=== PATIENT | female | born 1950 | race African-American/Black ===

== ENCOUNTER → 2019-07-11 | Outpatient (CLI) | payer OTHER, MEDICAID | LOC: M.LAB 08:44 | PROVIDERS: ATTEND Internal Medicine Gastroenterology | DX: Z01.812 Encounter for preprocedural laboratory examination (principal); Z80.0 Family history of malignant neoplasm of digestive organs ==

== ENCOUNTER → 2019-11-11 | Outpatient (CLI) | payer OTHER, MEDICAID | LOC: M.RAD 11-10 08:57 | PROVIDERS: ATTEND Family Medicine | DX: E65 Localized adiposity (principal); N63.21 Unspecified lump in the left breast, upper outer quadrant; N63.11 Unspecified lump in the right breast, upper outer quadrant ==

== ENCOUNTER → 2019-11-23 | Outpatient (CLI) | payer OTHER, MEDICAID ==
[2019-11-23 08:20] LABS: POTASSIUM 3.4 mmol/L (3.5-5.1)
== END ==
LOC: M.LAB 05:44
PROVIDERS: ATTEND Anesthesiology
DX: E87.6 Hypokalemia (principal); E11.9 Type 2 diabetes mellitus without complications

== ENCOUNTER → 2020-01-13 | Outpatient (CLI) | payer OTHER, MEDICAID | LOC: M.CT 11-22 13:00 | PROVIDERS: ATTEND Family Medicine | DX: R91.8 Other nonspecific abnormal finding of lung field (principal); I25.10 Atherosclerotic heart disease of native coronary artery without angina pectoris; R59.9 Enlarged lymph nodes, unspecified ==

== ENCOUNTER → 2020-02-08 | Outpatient (CLI) | payer OTHER, MEDICAID ==
[~2020-02-08] VITALS: Ht 160 cm; Wt 88.9 kg
[2020-02-08] VITALS (10 sets, daily range): BP systolic 150–177; BP diastolic 49–70
[~2020-02-08] MED LIST: ASA81BEC PO; BELSOMRA20 MG PO; COREG25 M1 PO; DESYREL150 MG PO; ENDOCET 7.5-321 EACH PO; FLUTICASONE-SA1 EAC4 INH; HYDROCHLOROTHIA25 M1 PO; JANUVIA100 MG PO; LEVO-T75 MCG PO; LIPITOR 40 MG T40 M1 PO; METRONIDAZOLE500 M4 PO; MICARDIS 80 MG80 MG PO; NEXIUM 40 MG CA40 M1 PO; PROAIR HFA8.5 GM INH; SPIRIVA RESPIMAT4 G1 INH; TOPICORT 0.25%15 GM TOP; ZANAFLEX4 MG PO
[2020-02-08 09:45] LABS: HEMATOCRIT 33.2 % (37.0-47.0); HEMOGLOBIN 11.3 gm/dL (12.0-15.0); MCH 29.3 pg (26.0-34.0); MCHC 34.1 g/dL (28.0-37.0); MPV 8.9 fl. (7.2-11.1); RBC 3.87 mil/uL (4.20-5.00); RDW-CV 13.3 % (10.5-14.5); WBC 6.3 thou/uL (4.0-11.0)
[2020-02-08 09:58] LABS: ANION GAP 10 mmol/L (7-16); BUN 11 mg/dL (7-18); CALCIUM 9.1 mg/dL (8.5-10.1); CHLORIDE 103 mmol/L (98-107); CO2 28 mmol/L (21-32); CREATININE 1.1 mg/dL (0.6-1.3); GLUCOSE 122 mg/dL (70-99); POTASSIUM 3.4 mmol/L (3.5-5.1); SODIUM 141 mmol/L (136-145)
[2020-02-08 10:03] LABS: ALBUMIN 3.8 g/dL (3.4-5.0); ALKALINE PHOSPHATASE 77 U/L (46-116); CHOLESTEROL 179 mg/dL (<200); HDL CHOLESTEROL 79 mg/dL (>40); LDL CHOLESTEROL 74 mg/dL (<100); SGOT 22 U/L (15-37); SGPT 36 U/L (30-65); TC:HDL 2.3 Ratio (Not establshd); TOTAL BILIRUBIN 0.4 mg/dL (<0.1-1.0); TOTAL PROTEIN 7.6 g/dL (6.4-8.2); TRIGLYCERIDE 133 mg/dL (<150); VLDL 27 mg/dL (<40)
[2020-02-08 10:05] LABS: SERUM ASSESSMENT Clear
[2020-02-08 10:13] LABS: APTT 28.6 Seconds (25.0-31.3); PROTIME 10.9 Seconds (9.20-11.50)
--- NOTE | 2020-02-08 14:47 | CARD ---
[address] [address] CARDIAC CATH REPORT Name: SARAH SANTILLAN Room: [facility]#: [id number] Admission: 02/08/20 Attend Phys: Ruy Woodall MD, Discharge: Date of : 54 Report #: [id number] THIS REPORT FOR: cc: Jeanine Thibodeaux Linda J. DO ~ Ruy Woodall MD [facility] ADDENDUM APPROVED REPORT Study performed: 02/08/2020 13:12:36 Patient Details Patient Status: Out-Patient Room #: The patient is a 69 year-old female Event Personnel Ruy Woodall Classifying Machine Operator, Iman Funk RN Math Teacher, Brittnee Lofton RTR Monitor, Aj Steinberg RTR Scrub Procedures Performed Art Access - R femoral artery, Left Heart Cath w/or w/o Coronaries LHC, Hemostasis w/ Mynx Indication Chest pain Risk Factors Obesity, Hypercholesterolemia, Hypertension Admission/Lab Medications/Medications given during procedure Hydralazine (Apresoline) IV 10 mg Procedure Narrative The patient was brought electively to the Cardiac Catheterization Laboratory and was prepped and draped in a sterile manner. The right femoral was infiltrated with 2% Lidocaine subcutaneous anesthesia. A [place] 6 FR sheath was inserted into the right femoral artery. Coronary angiography was performed using coronary diagnostic catheters. The right coronary system was accessed and visualized with a 6F JR4 catheter. The left coronary system was accessed and visualized with a 6F JL4 catheter. The left ventricle was accessed and visualized with a 6F Straight Pigtail catheter. Left ventricular/Aortic Valve gradient assessed [place] [address] CARDIAC CATH REPORT Name: SARAH SANTILLAN Room: [facility]#: [id number] Admission: 02/08/20 Attend Phys: Ruy Woodall MD, Discharge: Date of : 54 Report #: [id number] Left ventriculogram was performed in SPICER projection. Pre-demployment femoral angiogram was performed . Closure device was deployed with a 6 Fr Mynx. The patient tolerated the procedure well and there were no complications associated with the procedure. There was no hematoma. Intraoperative Conscious Sedation Sedation start time: 13:31 Case end Time: 13:51 Fentanyl 25 mcg Versed 3 mg Fluoro Time: 2.8 minutes Dose: DAP 88201 cGycm2 718 mGy Contrast Type and Amount: Visipaque 115 ml Coronary Angiography The patient's coronary anatomy is right dominant. Diagnostic Cath Left Main 0% LAD 0% narrowing Circumflex 0% narrowing Right Coronary Dominant vessel with 0% narrowing Left Ventriculography The left ventricle is normal in size with normal contractility. The left ventricular ejection fraction is estimated to be 60%. Left ventricular wall motion abnormalities are not present. There is no mitral insufficiency. Hemodynamics The aortic pressure is 170/70 mmHg with a mean of 88 mmHg. The left ventricular end diastolic pressure is 10 mmHg. There was no gradient across the aortic valve upon pullback. Conclusion 1. Normal coronary arteries with 0% left main LAD circumflex and right coronary narrowing 2. Moderate systemic systolic hypertension 3. Normal left ventricular systolic function, estimated ejection fraction of 60% [place] [address] CARDIAC CATH REPORT Name: SARAH SANTILLAN Room: [facility]#: [id number] Admission: 02/08/20 Attend Phys: Ruy Woodall MD, Discharge: Date of : 54 Report #: [id number] Cardiac Risk Reduction Program Diagnostic Cath Approved by: Ruy Woodall MD Date/Time: 02/08/2020 14:32:24 <ELECTRONICALLY SIGNED> By: Ruy Woodall MD, [facility] 02/08/20 1447 1447 1447Ruy Woodall MD, FACC /INF
--- NOTE | 2020-02-08 16:35 | EKG ---
[place] [address] ELECTROCARDIOGRAM REPORT Name: SARAH SANTILLAN Room: [facility]#: [id number] Admission: 02/08/20 Attend Phys: Mariam Oviedo Discharge: Date of : 54 Date of Service: 02/08/20 1023 Report #: [id number] THIS REPORT FOR: //name// [facility] Test Date: 2020-02-08 Test Time: 10:23:10 Pat Name: SARAH SANTILLAN Department: Room: Gender: F Snow Remover: : 1950 Requested By: Ruy Woodall Order Number: [id number] Tejas MD: Ruy Woodall Measurements Intervals [place] Rate: 52 P: -15 ND: 307 QRS: 12 QRSD: 84 T: 15 QT: 476 QTc: 443 Interpretive Statements Sinus rhythm Prolonged ND interval No previous ECG available for comparison Electronically Signed On 02-08-2020 16:35:41 MANAGER BUSINESS CONTINUITY by Ruy Woodall [email or web address] <ELECTRONICALLY SIGNED> By: Ruy Woodall MD, [facility] 02/08/20 1635 1023 1023 Ruy Woodall MD, FAC /EPI
== END | disposition home or self-care (01) ==
LOC: M.CL 08:59
PROVIDERS: ATTEND Internal Medicine
DX: R07.9 Chest pain, unspecified (principal); I10 Essential (primary) hypertension; E11.9 Type 2 diabetes mellitus without complications; E78.00 Pure hypercholesterolemia, unspecified; E07.9 Disorder of thyroid, unspecified; Z98.890 Other specified postprocedural states; E66.9 Obesity, unspecified; Z79.899 Other long term (current) drug therapy; Z90.49 Acquired absence of other specified parts of digestive tract; Z90.711 Acquired absence of uterus with remaining cervical stump; Z87.891 Personal history of nicotine dependence; Z91.040 Latex allergy status; Z88.8 Allergy status to other drugs, medicaments and biological substances; Z79.82 Long term (current) use of aspirin; Z20.828 Contact with and (suspected) exposure to other viral communicable diseases

== ENCOUNTER → 2020-04-10 | Outpatient (CLI) | payer OTHER, MEDICAID | LOC: M.RAD 03-23 09:24 → M.PUL 04-09 10:30 → M.RAD 10:30 | PROVIDERS: ATTEND Internal Medicine | DX: R06.00 Dyspnea, unspecified (principal) ==

== ENCOUNTER 2020-10-03 16:52 | Emergency (ER) | payer OTHER, MEDICAID ==
[~2020-10-03] VITALS: Ht 160 cm; Wt 88.5 kg
--- NOTE | 2020-10-03 17:35 | EKG ---
[place] [address] ELECTROCARDIOGRAM REPORT Name: SARAH SANTILLAN Room: [facility]#: [id number] Admission: 10/03/20 Attend Phys: Discharge: Date of : 54 Date of Service: 10/03/201652 Report #: [id number] THIS REPORT FOR: //name// [facility] ED Test Date: 2020-10-03 Test Time: 16:53:18 Pat Name: SARAH SANTILLAN Department: Room: Gender: Panel Assembler: : 1950 Requested By: Irma Nesbitt Order Number: [id number] MD: Alen Cano Measurements Intervals [place] Rate: 70 P: 31 NM: 216 QRS: 19 QRSD: 80 T: 16 QT: 418 QTc: 452 Interpretive Statements Sinus rhythm with first-degree AV block Compared to ECG 02/08/2020 10:23:10 No significant changes Electronically Signed On 10-03-2020 17:35:03 CDT by Alen Cano [email or web address] <ELECTRONICALLY SIGNED> By: Alen Cano MD, [facility] 10/03/20 1735 1653 1653 Alen Cano MD, [facility] /EPI
[2020-10-03 17:43] LABS: ABSOLUTE EOSINOPHILS 0.1 thou/uL (0.0-0.7); ABSOLUTE LYMPHOCYTES 2.6 thou/uL (0.8-5.3); ABSOLUTE MONOCYTES 0.4 thou/uL (0.0-1.2); ABSOLUTE NEUTROPHILS 2.9 thou/uL (1.6-8.1); BASOPHILS 0.6 %; EOSINOPHILS 1.3 %; HEMATOCRIT 32.9 % (37.0-47.0); HEMOGLOBIN 10.9 gm/dL (12.0-15.0); LYMPHOCYTES 43.1 %; MCH 28.5 pg (26.0-34.0); MCHC 33.2 g/dL (28.0-37.0); MCV 85.9 fL (80.0-100.0); MONOCYTES 7.1 %; MPV 8.3 fl. (7.2-11.1); NUCLEATED RBCS 0 /100WBC; PLATELET COUNT* 257 thou/uL (150-400); POLYS 47.9 %; RBC 3.83 mil/uL (4.20-5.00); RDW-CV 13.6 % (10.5-14.5); WBC 6.1 thou/uL (4.0-11.0)
[2020-10-03 17:53] LABS: CALCIUM 8.8 mg/dL (8.5-10.1); CREATININE 1.2 mg/dL (0.6-1.3); POTASSIUM 3.5 mmol/L (3.5-5.1)
[2020-10-03 18:04] LABS: ALBUMIN 3.9 g/dL (3.4-5.0); TOTAL BILIRUBIN 0.3 mg/dL (<0.1-1.0); TOTAL PROTEIN 7.2 g/dL (6.4-8.2)
[2020-10-03 20:38] VITALS: BP 160/61
--- NOTE | 2020-10-04 16:15 | EKG ---
[place] [address] ELECTROCARDIOGRAM REPORT Name: SARAH SANTILLAN Room: [facility]#: [id number] Admission: 10/03/20 Attend Phys: Discharge: 10/03/20 Date of : 54 Date of Service: 10/03/202017 Report #: [id number] THIS REPORT FOR: //name// [facility] ED Test Date: 2020-10-03 Test Time: 20:18:37 Pat Name: SARAH SANTILLAN Department: Room: Gender: F Audio Production Engineer: NIKKO : 1950 Requested By: Irma Nesbitt Order Number: [id number] MD: Ruy Woodall Measurements Intervals [place] Rate: 63 P: 17 MT: 227 QRS: 33 QRSD: 85 T: 33 QT: 444 QTc: 455 Interpretive Statements Sinus rhythm Prolonged MT interval Baseline wander in lead(s) I,III,aVL Compared to ECG 10/03/2020 16:53:18 First degree AV block now present Electronically Signed On 10-04-2020 16:15:17 CDT by Ruy Woodall [email or web address] <ELECTRONICALLY SIGNED> By: Ruy Woodall MD, [facility] 10/04/20 1615 17 17 Ruy Woodall MD, [facility] /EPI
== END 2020-10-03 20:39 | disposition home or self-care (01) ==
LOC: M.ERS 16:52
PROVIDERS: Nurse Practitioner Family
DX: S16.1XXA Strain of muscle, fascia and tendon at neck level, initial encounter (principal); R07.89 Other chest pain; E11.9 Type 2 diabetes mellitus without complications; I10 Essential (primary) hypertension; E78.5 Hyperlipidemia, unspecified; I25.2 Old myocardial infarction; Z98.890 Other specified postprocedural states; Z90.49 Acquired absence of other specified parts of digestive tract; Z90.710 Acquired absence of both cervix and uterus; Z90.89 Acquired absence of other organs; Z79.82 Long term (current) use of aspirin; Z79.891 Long term (current) use of opiate analgesic; Z79.899 Other long term (current) drug therapy; Z88.6 Allergy status to analgesic agent; Z91.040 Latex allergy status; Z91.09 Other allergy status, other than to drugs and biological substances; W20.8XXA Other cause of strike by thrown, projected or falling object, initial encounter; Y93.89 Activity, other specified; Y92.89 Other specified places as the place of occurrence of the external cause; Y99.8 Other external cause status

== ENCOUNTER 2020-10-16 07:39 | Emergency (ER) | payer OTHER, MEDICAID ==
[~2020-10-16] VITALS: Ht 162.6 cm; Wt 90.7 kg
[2020-10-16 08:38] LABS: ABSOLUTE BASOPHILS 0.1 thou/uL (0.0-0.2); ABSOLUTE EOSINOPHILS 0.2 thou/uL (0.0-0.7); ABSOLUTE LYMPHOCYTES 2.6 thou/uL (0.8-5.3); ABSOLUTE MONOCYTES 0.5 thou/uL (0.0-1.2); ABSOLUTE NEUTROPHILS 2.7 thou/uL (1.6-8.1); EOSINOPHILS 2.9 %; HEMATOCRIT 31.2 % (37.0-47.0); HEMOGLOBIN 10.7 gm/dL (12.0-15.0); LYMPHOCYTES 43.5 %; MCH 29.2 pg (26.0-34.0); MCHC 34.2 g/dL (28.0-37.0); MCV 85.5 fL (80.0-100.0); MONOCYTES 7.6 %; MPV 8.7 fl. (7.2-11.1); NUCLEATED RBCS 0 /100WBC; PLATELET COUNT* 255 thou/uL (150-400); RBC 3.65 mil/uL (4.20-5.00); RDW-CV 13.9 % (10.5-14.5); WBC 5.9 thou/uL (4.0-11.0)
[2020-10-16 08:41] LABS: CREATININE 1.2 mg/dL (0.6-1.3); POTASSIUM 3.7 mmol/L (3.5-5.1)
[2020-10-16 08:45] LABS: ALBUMIN 3.5 g/dL (3.4-5.0); TOTAL BILIRUBIN 0.3 mg/dL (<0.1-1.0); TOTAL PROTEIN 6.6 g/dL (6.4-8.2)
[2020-10-16] MEDS ORDERED: PERCOCET PO (09:04)
[2020-10-16] MEDS ORDERED: PREDNISONE 20 M20 M1 PO (09:16)
[2020-10-16 09:33] VITALS: BP 159/54
--- NOTE | 2020-10-16 17:47 | EKG ---
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: CD : 1950 Requested By: Gamaliel Balbuena Order Number: [id number] MD: Alen Cano Measurements Intervals [place] Rate: 65 P: 31 WA: 226 QRS: 11 QRSD: 93 T: 16 QT: 437 QTc: 455 Interpretive Statements Sinus rhythm Prolonged [place] interval Low voltage, precordial leads Compared to ECG 10/03/2020 20:18:37 Low QRS voltage now present Electronically Signed On 10-16-2020 17:47:44 CDT by Alen Cano [email or web address] <ELECTRONICALLY SIGNED> By: Alen Cano MD, FAC 10/16/20 1747 0747 Alen Cano MD, [facility] /EPI
== END 2020-10-16 09:34 | disposition home or self-care (01) ==
LOC: M.ERS 07:39
PROVIDERS: Family Medicine
DX: M79.602 Pain in left arm (principal); R06.02 Shortness of breath; R07.89 Other chest pain; E11.9 Type 2 diabetes mellitus without complications; I10 Essential (primary) hypertension; E78.5 Hyperlipidemia, unspecified; E07.9 Disorder of thyroid, unspecified; I25.2 Old myocardial infarction; Z90.49 Acquired absence of other specified parts of digestive tract; Z90.711 Acquired absence of uterus with remaining cervical stump; Z90.89 Acquired absence of other organs; Z79.82 Long term (current) use of aspirin; Z79.899 Other long term (current) drug therapy; Z88.5 Allergy status to narcotic agent; Z88.6 Allergy status to analgesic agent; Z91.040 Latex allergy status

== ENCOUNTER → 2020-10-22 | Outpatient (CLI) | payer OTHER, MEDICAID ==
[~2020-10-22] MED LIST changes: +PERCOCET PO; +PREDNISONE 20 M20 M1 PO
== END ==
LOC: M.MRI 12:56
PROVIDERS: ATTEND Specialist
DX: M47.816 Spondylosis without myelopathy or radiculopathy, lumbar region (principal); M48.061 Spinal stenosis, lumbar region without neurogenic claudication; R53.1 Weakness; R15.9 Full incontinence of feces; G62.9 Polyneuropathy, unspecified; R26.81 Unsteadiness on feet

== ENCOUNTER → 2020-11-14 | Outpatient (CLI) | payer OTHER, MEDICAID | LOC: M.MRI 10-25 09:16 | PROVIDERS: ATTEND Specialist | DX: M51.24 Other intervertebral disc displacement, thoracic region (principal); M50.323 Other cervical disc degeneration at C6-C7 level; M48.02 Spinal stenosis, cervical region; M48.03 Spinal stenosis, cervicothoracic region; R26.81 Unsteadiness on feet; R53.1 Weakness; G62.9 Polyneuropathy, unspecified ==

== ENCOUNTER → 2021-01-17 | Outpatient (CLI) | payer OTHER, MEDICAID ==
[2021-01-17 10:12] LABS: CALCIUM 9.6 mg/dL (8.5-10.1); CREATININE 1.1 mg/dL (0.6-1.3); POTASSIUM 3.7 mmol/L (3.5-5.1)
[2021-01-18 21:06] LABS: ANA INTERPRETATION Negative (())
== END ==
LOC: M.MRI 08:29 → M.LAB 08:29 → M.MRI 08:30
PROVIDERS: ATTEND Psychiatry & Neurology Neuromuscular Medicine
DX: I10 Essential (primary) hypertension (principal); R53.1 Weakness; M48.02 Spinal stenosis, cervical region

== ENCOUNTER 2021-03-08 12:50 | Emergency (ER) | payer OTHER, MEDICAID ==
[~2021-03-08] VITALS: Ht 160 cm; Wt 95.3 kg
[2021-03-08 13:03] VITALS: BP 173/78
[2021-03-09] MEDS ORDERED: KLOR-CON 1010 MEQ PO (06:25)
[2021-03-09] MEDS ORDERED: CARAFATE 1 GM TA1 GM PO (06:25)
[2021-03-09] MEDS ORDERED: ZOFRAN ODT4 MG PO (06:25)
[2021-03-09] MEDS ORDERED: HYDROCODON-ACE1 EAC8 PO (06:25)
[2021-04-01] MEDS ORDERED: JARDIANCE10 MG PO (15:28)
== END 2021-03-08 15:12 | disposition left against medical advice (07) ==
LOC: M.ERS 12:50
DX: R10.84 Generalized abdominal pain (principal); E11.9 Type 2 diabetes mellitus without complications; I10 Essential (primary) hypertension; E78.5 Hyperlipidemia, unspecified; Z98.890 Other specified postprocedural states; Z90.49 Acquired absence of other specified parts of digestive tract; Z90.710 Acquired absence of both cervix and uterus; Z90.89 Acquired absence of other organs; Z91.041 Radiographic dye allergy status; Z88.5 Allergy status to narcotic agent; Z88.8 Allergy status to other drugs, medicaments and biological substances; Z53.21 Procedure and treatment not carried out due to patient leaving prior to being seen by health care provider

== ENCOUNTER 2021-03-09 00:54 | Emergency (ER) | payer OTHER, MEDICAID ==
[~2021-03-09] VITALS: Ht 160 cm; Wt 95.3 kg
[2021-03-09 02:36] LABS: ABSOLUTE EOSINOPHILS 0.1 thou/uL (0.0-0.7); ABSOLUTE LYMPHOCYTES 3.1 thou/uL (0.8-5.3); ABSOLUTE MONOCYTES 0.6 thou/uL (0.0-1.2); ABSOLUTE NEUTROPHILS 4.1 thou/uL (1.6-8.1); BASOPHILS 0.6 %; EOSINOPHILS 0.9 %; HEMATOCRIT 36.3 % (37.0-47.0); HEMOGLOBIN 12.1 gm/dL (12.0-15.0); LYMPHOCYTES 39.2 %; MCH 28.1 pg (26.0-34.0); MCHC 33.5 g/dL (28.0-37.0); MCV 83.9 fL (80.0-100.0); MONOCYTES 7.7 %; MPV 8.1 fl. (7.2-11.1); NUCLEATED RBCS 0 /100WBC; PLATELET COUNT* 317 thou/uL (150-400); POLYS 51.6 %; RBC 4.32 mil/uL (4.20-5.00); RDW-CV 14.1 % (10.5-14.5)
[2021-03-09 02:48] LABS: CALCIUM 8.8 mg/dL (8.5-10.1); CREATININE 1.1 mg/dL (0.6-1.3)
[2021-03-09 02:51] LABS: PROTIME 10.1 Seconds (9.20-11.50)
[2021-03-09 02:52] LABS: POTASSIUM 2.6 mmol/L (3.5-5.1)
[2021-03-09 02:58] LABS: ALBUMIN 3.5 g/dL (3.4-5.0); MAGNESIUM 2.2 mg/dL (1.8-2.4); TOTAL BILIRUBIN 0.5 mg/dL (<0.1-1.0); TOTAL PROTEIN 6.7 g/dL (6.4-8.2)
[2021-03-09 03:50] LABS: URINE BILIRUBIN NEGATIVE (Negative); URINE BLOOD NEGATIVE (Negative); URINE CLARITY CLEAR; URINE COLOR YELLOW; URINE GLUCOSE-RANDOM 2+ (Negative); URINE KETONES NEGATIVE (Negative); URINE LEUKOCYTES-REFLEX NEGATIVE (Negative); URINE NITRITE-REFLEX NEGATIVE (Negative); URINE PROTEIN NEGATIVE (Negative); URINE SPECIFIC GRAVITY 1.015 (1.005-1.030); URINE UROBILINOGEN 0.2 E.U./dl (0.2-1.0)
[2021-03-09] MEDS ORDERED: HYDROCODON-ACE1 EAC8 PO (06:25)
[2021-03-09] MEDS ORDERED: KLOR-CON 1010 MEQ PO (06:25)
[2021-03-09] MEDS ORDERED: CARAFATE 1 GM TA1 GM PO (06:25)
[2021-03-09] MEDS ORDERED: ZOFRAN ODT4 MG PO (06:25)
[2021-03-09 07:00] VITALS: BP 134/65
--- NOTE | 2021-03-10 13:13 | EKG ---
[place] [address] ELECTROCARDIOGRAM REPORT Name: SARAH SANTILLAN Room: [facility]#: [id number] Admission: 03/09/21 Attend Phys: Discharge: 03/09/21 Date of : 54 Date of Service: 03/09/21 0135 Report #: [id number] THIS REPORT FOR: //name// [facility] ED Test Date: 2021-03-09 Test Time: 01:35:19 Pat Name: SARAH SANTILLAN Department: Room: Gender: F Ribbon Blocker: : 1950 Requested By: Darlin Judge Order Number: [id number] MD: Alen Cano Measurements Intervals [place] Rate: 59 P: 8 NH: 206 QRS: 3 QRSD: 82 T: 4 QT: 451 QTc: 447 Interpretive Statements Sinus rhythm Compared to ECG 10/16/2020 07:47:27 First degree AV block no longer present Dear staff Electronically Signed On 03-10-2021 13:13:41 MEAT DRESSER by Alen Cano [email or web address] <ELECTRONICALLY SIGNED> By: Alen Cano MD, [facility] 03/10/21 1313 0135 0135 Alen Cano MD, [facility] /EPI
== END 2021-03-09 07:01 | disposition home or self-care (01) ==
LOC: M.ERS 00:54
PROVIDERS: Emergency Medicine
DX: R10.13 Epigastric pain (principal); E11.9 Type 2 diabetes mellitus without complications; I10 Essential (primary) hypertension; E78.5 Hyperlipidemia, unspecified; I25.2 Old myocardial infarction; Z98.890 Other specified postprocedural states; Z90.89 Acquired absence of other organs; Z90.710 Acquired absence of both cervix and uterus; Z90.49 Acquired absence of other specified parts of digestive tract; Z79.82 Long term (current) use of aspirin; Z79.51 Long term (current) use of inhaled steroids; Z79.899 Other long term (current) drug therapy; Z88.5 Allergy status to narcotic agent; Z91.041 Radiographic dye allergy status; Z91.040 Latex allergy status; Z88.8 Allergy status to other drugs, medicaments and biological substances

== ENCOUNTER → 2021-04-05 | Outpatient (CLI) | payer OTHER, MEDICAID ==
[~2021-04-05] MED LIST changes: +CARAFATE 1 GM TA1 GM PO; +HYDROCODON-ACE1 EAC8 PO; +JARDIANCE10 MG PO; +KLOR-CON 1010 MEQ PO; +ZOFRAN ODT4 MG PO
== END ==
LOC: M.LAB 08:45
PROVIDERS: ATTEND Internal Medicine Gastroenterology
DX: Z01.812 Encounter for preprocedural laboratory examination (principal); Z20.822 Contact with and (suspected) exposure to COVID-19

== ENCOUNTER → 2021-04-08 | Day surgery (SDC) | payer OTHER, MEDICAID ==
[2021-04-08 09:30] LABS: HEMATOCRIT 39.6 % (37.0-47.0); HEMOGLOBIN 13.2 gm/dL (12.0-15.0); MCHC 33.3 g/dL (28.0-37.0); MPV 7.7 fl. (7.2-11.1); RBC 4.72 mil/uL (4.20-5.00); WBC 6.9 thou/uL (4.0-11.0)
[2021-04-08 09:56] LABS: CALCIUM 9.6 mg/dL (8.5-10.1); CREATININE 1.2 mg/dL (0.6-1.3)
--- NOTE | 2021-04-08 09:56 | EKG ---
[place] [address] ELECTROCARDIOGRAM REPORT Name: SARAH SANTILLAN Room: [facility]#: [id number] Admission: 04/08/21 Attend Phys: Justo Frankel, Discharge: Date of : 54 Date of Service: 04/08/219[address] Report #: [id number] THIS REPORT FOR: //name// [facility] Test Date: 2021-04-08 Test Time: 09:19:19 Pat Name: SARAH SANTILLAN Department: Room: Gender: F Garden Worker: WILMA CORDOVA : 1950 Requested By: Justo Frankel Order Number: [id number] Tejas MD: Charles Flores Measurements Intervals [place] Rate: 70 P: 67 NM: 228 QRS: 16 QRSD: 90 T: 42 QT: 416 QTc: 449 Interpretive Statements Sinus rhythm Prolonged NM interval Baseline wander in lead(s) I,II,III,aVR,aVF Compared to ECG 03/09/2021 01:35:19 First degree AV block now present Electronically Signed On 04-08-2021 9:56:35 SALES COMMISSIONS ANALYST by Charles Flores [email or web address] <ELECTRONICALLY SIGNED> By: Charles Flores MD, FAC 04/08/21 0956 8 8 Charles Flores MD, FAC /EPI
[2021-04-08 10:06] LABS: POTASSIUM 2.9 mmol/L (3.5-5.1)
== END | disposition home or self-care (01) ==
LOC: M.SUR 05:11
PROVIDERS: ATTEND Internal Medicine Gastroenterology
DX: R19.4 Change in bowel habit (principal); K57.30 Diverticulosis of large intestine without perforation or abscess without bleeding; K64.4 Residual hemorrhoidal skin tags; R63.4 Abnormal weight loss; K44.9 Diaphragmatic hernia without obstruction or gangrene; R68.81 Early satiety; I10 Essential (primary) hypertension; E11.9 Type 2 diabetes mellitus without complications; I25.2 Old myocardial infarction; J44.9 Chronic obstructive pulmonary disease, unspecified; Z98.890 Other specified postprocedural states; Z79.899 Other long term (current) drug therapy; Z87.891 Personal history of nicotine dependence